=== PATIENT | male | born 1955 | race Caucasian/White ===

== ENCOUNTER 2018-07-14 18:56 | Emergency (ER) | payer OTHER ==
[2018-07-14] MEDS ORDERED: Sodium Chloride 0.9% 10 ML Syringe FLUSH PRN (19:38)
[2018-07-14] MEDS ORDERED: fentaNYL 100 MCG/2 ML SDV IVPUSH ONE ×2 (19:40→22:15)
[2018-07-14] MEDS ORDERED: Ondansetron 4 MG/2 ML SDV IVPUSH ONE (19:40)
[2018-07-14 20:52] VITALS: BP 134/72
--- NOTE | 2018-07-14 21:56 | EDM.PDOC ---
ED HPI GENERAL MEDICAL PROBLEM - General Chief Complaint: Abdominal Pain Stated Complaint: gallbladder out 07/10-abd pain Time Seen by Provider: 07/14/18 19:30 Source of Information: Reports: Patient History Limitations: Reports: No Limitations - History of Present Illness INITIAL COMMENTS - FREE TEXT/NARRATIVE: This man had a laparoscopic cholecystectomy 4 days ago. Tonight he had sudden onset of severe right upper quadrant abdominal pain. The pain has been continuous and unrelenting. This man's problems started at the end of June when he had biliary obstruction and underwent an ER CP at [facility] in [place]. The following day he had an upper GI bleed which was seen in our hospital he was started on the transfusion and then transferred back to [place]. Subsequently he went underwent the laparoscopic cholecystectomy 4 days ago. He said well since then and his pain has gotten much better until tonight. - Related Data Allergies Allergy/AdvReac Type Severity Reaction Status Date / Time tramadol Allergy Nausea Verified 07/14/18 19:18 morphine AdvReac Vomiting Verified 07/03/18 17:38 Nnvpmmo-Nuk-Yit Reductase AdvReac Renal Verified 07/03/18 17:38 Inhibitor Insufficiency Home Meds: Home Meds Ascorbic Acid [Vitamin C] 4,000 mg PO DAILY 08/14/15 [History] Aspirin 325 mg PO DAILY 08/14/15 [History] Clopidogrel [Plavix] 75 mg PO DAILY 08/14/15 [History] Acetaminophen/HYDROcodone [[place]esia 325-5 MG] 07/14/18 [History] Past Medical History HEENT History: Reports: Impaired Vision Cardiovascular History: Reports: OR, SOB on Exertion, Stents Respiratory History: Reports: Pneumonia, Recurrent Genitourinary History: Reports: None Musculoskeletal History: Reports: Arthritis, Back Pain, Chronic, Fracture, Osteoarthritis Neurological History: Reports: Concussion, Head Trauma Endocrine/Metabolic History: Reports: Obesity/BMI 30+ Hematologic History: Reports: Anticoagulation Therapy - Infectious Disease History Infectious Disease History: Reports: Chicken Pox, Measles, Mumps, Rheumatic Fever - Past Surgical History HEENT Surgical History: Reports: Oral Surgery, Tonsillectomy Cardiovascular Surgical History: Reports: Carotid Stents GI Surgical History: Reports: Appendectomy, Cholecystectomy, Colonoscopy, ERCP, Other (See Below) Other GI Surgeries/Procedures: Enlarged comon bile duct Endocrine Surgical History: Reports: None Neurological Surgical History: Reports: Discectomy, Other (See Below) Musculoskeletal Surgical History: Reports: Arthroscopic Knee, Ganglion Cyst, Knee Replacement, Shoulder Replacement Dermatological Surgical History: Reports: Skin Biopsy Social & Family History - Tobacco Use Smoking Status *Q: Never Smoker - Caffeine Use Caffeine Use: Reports: Coffee, Soda ED ROS GENERAL - Review of Systems Review Of Systems: ROS reveals no pertinent complaints other than HPI. ED EXAM, GI/ABD - Physical Exam Exam: See Below Exam Limited By: No Limitations General Appearance: Alert, WD/WN, Moderate Distress Eyes: Bilateral: Normal Appearance Ears: Normal External Exam Nose: Normal Inspection Throat/Mouth: Normal Oropharynx Head: Atraumatic Neck: Normal Inspection Respiratory/Chest: No Respiratory Distress, Lungs Clear Cardiovascular: Regular Rate, Rhythm, No Murmur GI/Abdominal Exam: Tender (Right upper quadrant tenderness recent surgical scars consistent with laparoscopic cholecystectomy. Hypoactive bowel sounds) Extremities: Normal Inspection Neurological: Alert, Oriented Psychiatric: Normal Affect Skin Exam: Warm Course - Vital Signs Last Recorded V/S: Last Vital Signs Temp 37.4 C 07/14/18 20:51 Pulse 99 07/14/18 20:51 Resp 16 07/14/18 20:51 BP 134/72 07/14/18 20:51 Pulse Ox 92 L 07/14/18 20:51 - Orders/Labs/Meds Orders: Active Orders 24 hr Category Date Time Status EKG Documentation Completion [RC] ASDIRECTED Care 07/14/18 19:39 Active Abdomen Pelvis wo Cont [CT] Stat Exams 07/14/18 19:38 Taken Sodium Chloride 0.9% [Saline Flush] Med 07/14/18 19:38 Active 10 ml FLUSH ASDIRECTED PRN Saline Lock Insert [OM.PC] Urgent Oth 07/14/18 19:38 Ordered EKG 12 Lead [EK] Urgent Ther 07/14/18 19:38 Ordered Medication Orders Sodium Chloride (Saline Flush) 10 ml FLUSH ASDIRECTED PRN PRN Reason: Keep Vein Open Last Admin: 07/14/18 19:49 Dose: 10 ml Labs: Laboratory Tests 07/14/18 07/14/18 07/14/18 Range/Units 19:38 19:49 19:49 WBC 15.0 H (4.5-11.0) K/uL RBC 3.84 L (4.30-5.90) M/uL Hgb 11.8 L (12.0-15.0) g/dL Hct 35.2 L (40.0-54.0) % MCV 92 (80-98) fL MCH 31 (27-31) pg MCHC 34 (32-36) % Plt Count 431 H (150-400) K/uL Neut % (Auto) 87 H (36-66) % Lymph % (Auto) 6 L (24-44) % Eagle % (Auto) 7 H (2-6) % Eos % (Auto) 1 L (2-4) % Baso % (Auto) 0 (0-1) % Sodium (140-148) mmol/L Potassium (3.6-5.2) mmol/L Chloride (100-108) mmol/L Carbon Dioxide (21-32) mmol/L Anion Gap (5.0-14.0) mmol/L BUN (7-18) mg/dL Creatinine (0.8-1.3) mg/dL Est Cr Clr Drug Dosing mL/min Estimated GFR (MDRD) (>60) Glucose (74-106) mg/dL Calcium (8.5-10.1) mg/dL Total Bilirubin (0.2-1.0) mg/dL AST (15-37) U/L ALT (12-78) U/L Alkaline Phosphatase (46-116) U/L Total Protein (6.4-8.2) g/dL Albumin (3.4-5.0) g/dL Globulin (2.3-3.5) g/dL Albumin/Globulin Ratio (1.2-2.2) Lipase 96 (73-393) U/L Urine Color Ransom Urine Appearance Cloudy Urine pH 5.0 (4.5-8.0) Ur Specific [place] 1.015 (1.008-1.030) Urine Protein Trace (NEGATIVE) mg/dL Urine Glucose (UA) 100 H (NEGATIVE) mg/dL Urine Ketones 15 H (NEGATIVE) mg/dL Urine Occult Blood Negative (NEGATIVE) Urine Nitrite Negative (NEGAITVE) Urine Bilirubin Moderate (NEGATIVE) Urine Urobilinogen 4 (NORMAL) mg/dL Ur Leukocyte Esterase Negative (NEGATIVE) Urine RBC 0-5 (0-5) Urine WBC 0-5 (0-5) Ur Epithelial Cells Rare Amorphous Sediment Few Urine Bacteria Not seen Urine Mucus Few Urine Other See note 07/14/18 Range/Units 19:49 WBC (4.5-11.0) K/uL RBC (4.30-5.90) M/uL Hgb (12.0-15.0) g/dL Hct (40.0-54.0) % MCV (80-98) fL MCH (27-31) pg MCHC (32-36) % Plt Count (150-400) K/uL Neut % (Auto) (36-66) % Lymph % (Auto) (24-44) % Eagle % (Auto) (2-6) % Eos % (Auto) (2-4) % Baso % (Auto) (0-1) % Sodium 136 L (140-148) mmol/L Potassium 3.7 (3.6-5.2) mmol/L Chloride 99 L (100-108) mmol/L Carbon Dioxide 27 (21-32) mmol/L Anion Gap 13.7 (5.0-14.0) mmol/L BUN 11 D (7-18) mg/dL Creatinine 1.1 (0.8-1.3) mg/dL Est Cr Clr Drug Dosing 63.43 mL/min Estimated GFR (MDRD) > 60 (>60) Glucose 172 H (74-106) mg/dL Calcium 9.3 (8.5-10.1) mg/dL Total Bilirubin 2.5 H (0.2-1.0) mg/dL AST 83 H (15-37) U/L ALT 101 H (12-78) U/L Alkaline Phosphatase 395 H D (46-116) U/L Total Protein 7.2 (6.4-8.2) g/dL Albumin 2.3 L (3.4-5.0) g/dL Globulin 4.9 H (2.3-3.5) g/dL Albumin/Globulin Ratio 0.5 L (1.2-2.2) Lipase (73-393) U/L Urine Color Urine Appearance Urine pH (4.5-8.0) Ur Specific [place] (1.008-1.030) Urine Protein (NEGATIVE) mg/dL Urine Glucose (UA) (NEGATIVE) mg/dL Urine Ketones (NEGATIVE) mg/dL Urine Occult Blood (NEGATIVE) Urine Nitrite (NEGAITVE) Urine Bilirubin (NEGATIVE) Urine Urobilinogen (NORMAL) mg/dL Ur Leukocyte Esterase (NEGATIVE) Urine RBC (0-5) Urine WBC (0-5) Ur Epithelial Cells Amorphous Sediment Urine Bacteria Urine Mucus Urine Other Meds: Medications Generic Name Dose Route Start Last Admin Trade Name Freq PRN Reason Stop Dose Admin Sodium Chloride 10 ml 07/14/18 19:38 07/14/18 19:49 Saline Flush FLUSH 10 ml ASDIRECTED PRN Administration Keep Vein Open Discontinued Medications Generic Name Dose Route Start Last Admin Trade Name Freq PRN Reason Stop Dose Admin Fentanyl 50 mcg 07/14/18 19:40 07/14/18 19:50 Sublimaze IVPUSH 07/14/18 19:41 50 mcg ONETIME ONE Administration Ondansetron HCl 4 mg 07/14/18 19:40 07/14/18 19:49 Zofran IVPUSH 07/14/18 19:41 4 mg ONETIME ONE Administration - Re-Assessments/Exams Free Text/Narrative Re-Assessment/Exam: 07/14/18 22:00 EKG showed normal sinus rhythm at 96 bpm left anterior fascicular block and LVH and an old anterior OR. An IV was established he was given fentanyl 50 mg IV and Zofran or milligrams IV. This gave good pain relief. CT of the abdomen and pelvis done showed some biliary dilatation and a 9 and 10 mm densities in the distal hepatic duct suspicious for choledocholithiasis or possibly even blood clot I spoke with the machine helper at [facility] Dr. Crow. He said that the this patient definitely needs to be hospitalized and he recommended that we transfer him to [place]. I spoke with the hospitalist Dr. Calvo and he accepted the patient. The patient was given an additional dose of fentanyl 50 mg IV prior to transport. Departure - Departure Time of Disposition: 22:03 Disposition: Home, Self-Care 01 Condition: Fair Clinical Impression: Choledocholithiasis with obstruction - Discharge Information Referrals: Jacy Hope MD [Primary Care Provider] - - My Orders Last 24 Hours: My Active Orders 07/14/18 19:38 Abdomen Pelvis wo Cont [CT] Stat Sodium Chloride 0.9% [Saline Flush] 10 ml FLUSH ASDIRECTED PRN Saline Lock Insert [OM.PC] Urgent EKG 12 Lead [EK] Urgent 07/14/18 19:39 EKG Documentation Completion [RC] ASDIRECTED - Assessment/Plan Last 24 Hours: My Active Orders 07/14/18 19:38 Abdomen Pelvis wo Cont [CT] Stat Sodium Chloride 0.9% [Saline Flush] 10 ml FLUSH ASDIRECTED PRN Saline Lock Insert [OM.PC] Urgent EKG 12 Lead [EK] Urgent 07/14/18 19:39 EKG Documentation Completion [RC] ASDIRECTED
== END 2018-07-14 22:19 | disposition home or self-care (01) ==
LOC: JP.ED 18:56
DX: K80.51 Calculus of bile duct without cholangitis or cholecystitis with obstruction (principal); E66.9 Obesity, unspecified; Z88.5 Allergy status to narcotic agent; Z88.8 Allergy status to other drugs, medicaments and biological substances; Z79.82 Long term (current) use of aspirin; Z90.49 Acquired absence of other specified parts of digestive tract
CPT/HCPCS: 36415; 74176; 80053; 81001; 83690; 85025; 93005; 96374; 96375; 96376; 99285; J2405; J3010

== ENCOUNTER 2018-10-19 07:53 | Day surgery (SDC) | payer MEDICARE, OTHER ==
[2018-10-19] MEDS ORDERED: Sodium Chloride 0.9% 1,000 ML IV SCH (08:45)
[2018-10-19] MEDS ORDERED: Midazolam 1 MG/ML 2 ML SDV ONE (09:10)
[2018-10-19] MEDS ORDERED: Propofol 200 MG/20 ML SDV ONE (09:10)
[2018-10-19] MEDS ORDERED: fentaNYL 100 MCG/2 ML SDV ONE (09:10)
[2018-10-19 10:50] VITALS: BP 122/84
--- NOTE | 2018-10-19 15:21 | OR ---
DATE OF PROCEDURE: 10/19/2018 PROCEDURE: Colonoscopy. FINDINGS: 1. Transverse colon, approximately 8 mm, completely removed using cold snare. 2. Sigmoid colon polyp, approximately 8 mm, completely removed using cold snare. COMPLICATIONS: None. BIKE DESIGNER: None. PREOPERATIVE DIAGNOSIS: History of colon polyps/screening colonoscopy. POSTOPERATIVE DIAGNOSIS: History of colon polyps/screening colonoscopy. RISKS: Risks, benefits, alternatives, and limitations including, but not limited to infection, bleeding, and perforation were explained to the patient who wished to proceed. PROCEDURE IN DETAIL: The patient was placed in left lateral decubitus position. Digital rectal exam was performed without abnormalities, small external hemorrhoids were noted. The scope was introduced and advanced atraumatically to the ileocecal valve. The scope was brought back to the ascending, transverse, descending colon, and retroflexed. The aforementioned polyps were identified and completely removed. No other abnormalities noted. No diverticulosis. No old or new blood. No colitis. The patient tolerated the procedure well. George De Leon MD /[id number]
== END 2018-10-19 10:40 | disposition home or self-care (01) ==
LOC: JP.SDS 07:53
PROVIDERS: ATTEND Surgery
DX: Z12.11 Encounter for screening for malignant neoplasm of colon (principal); D12.5 Benign neoplasm of sigmoid colon; K63.5 Polyp of colon; K64.4 Residual hemorrhoidal skin tags; I25.10 Atherosclerotic heart disease of native coronary artery without angina pectoris; E66.9 Obesity, unspecified; Z68.34 Body mass index [BMI] 34.0-34.9, adult; Z95.5 Presence of coronary angioplasty implant and graft; Z86.010 Personal history of colon polyps
CPT/HCPCS: 88305; J2250; J2704; J3010; J7030

== ENCOUNTER 2022-12-15 08:01 | Day surgery (SDC) | payer MEDICARE ==
[2022-12-15] MEDS ORDERED: Propofol 200 MG/20 ML SDV ONE (08:32)
[2022-12-15] MEDS ORDERED: fentaNYL 50 MCG/ML SDV ONE (08:32)
[2022-12-15] MEDS ORDERED: Midazolam 1 MG/ML 2 ML SDV ONE (08:32)
[2022-12-15] MEDS ORDERED: Sodium Chloride 0.9% 1,000 ML IV SCH (08:45)
[2022-12-15 10:46] VITALS: BP 115/74; PULSE 67
== END 2022-12-15 10:50 | disposition home or self-care (01) ==
LOC: JP.SDS 08:01
PROVIDERS: ATTEND Surgery
DX: Z12.11 Encounter for screening for malignant neoplasm of colon (principal); I25.10 Atherosclerotic heart disease of native coronary artery without angina pectoris; E66.9 Obesity, unspecified; R79.89 Other specified abnormal findings of blood chemistry; M19.90 Unspecified osteoarthritis, unspecified site; Z86.010 Personal history of colon polyps; Z68.36 Body mass index [BMI] 36.0-36.9, adult; Z79.899 Other long term (current) drug therapy; Z88.5 Allergy status to narcotic agent; Z88.8 Allergy status to other drugs, medicaments and biological substances
CPT/HCPCS: J2250; J2704; J3010; J7030